=== PATIENT | male | born 1980 | race Caucasian/White ===

== ENCOUNTER 2017-06-23 15:31 | Emergency (ER) | payer OTHER ==
[2017-06-23] MEDS: IBUPROFEN 600 MG TABLET. PO ×2 (17:14)
== END 2017-06-23 17:37 | disposition home or self-care (01) ==
LOC: ER 15:31
DX: S30.0XXA Contusion of lower back and pelvis, initial encounter (principal); S09.90XA Unspecified injury of head, initial encounter; F31.9 Bipolar disorder, unspecified; G89.29 Other chronic pain; Z88.2 Allergy status to sulfonamides; Z88.8 Allergy status to other drugs, medicaments and biological substances; W00.0XXA Fall on same level due to ice and snow, initial encounter; Y93.89 Activity, other specified; Y99.8 Other external cause status; Y92.89 Other specified places as the place of occurrence of the external cause
CPT/HCPCS: 72072; 72100; 99284

== ENCOUNTER 2017-11-01 14:21 | Emergency (ER) | payer OTHER | END 2017-11-01 15:45 | disposition home or self-care (01) | LOC: ER 14:21 | DX: S01.91XD Laceration without foreign body of unspecified part of head, subsequent encounter (principal); F31.9 Bipolar disorder, unspecified; G89.29 Other chronic pain; F17.200 Nicotine dependence, unspecified, uncomplicated; Z88.2 Allergy status to sulfonamides; Z88.8 Allergy status to other drugs, medicaments and biological substances; X58.XXXD Exposure to other specified factors, subsequent encounter | CPT/HCPCS: 99281 ==